=== PATIENT | male | born 1940 | race Two or more races ===

== ENCOUNTER 2020-01-11 06:37 | Day surgery (SDC) | payer MEDICARE, BC ==
[~2020-01-11] VITALS: Ht 170.2 cm; Wt 59.0 kg
[2020-01-11] VITALS (9 sets, daily range): BP systolic 110–161; BP diastolic 56–86
[~2020-01-11 06:37] MED LIST: GLUCOTROL5 MG ORAL; METFORMIN HCL1000 M1 ORAL
--- NOTE | 2020-01-11 06:46 | Short Stay Surgery H&P ---
History of Present Illness History of Present Illness Chief Complaint Abdominal pains, constipation, hemorrhoids HPI Butch Heredia is a 79 year old male who was admitted on for Heartburn, Constipation,abdominal pain Patient History Allergies: Uncoded Allergies: avocado (Allergy, Unknown, 01/10/20) PAST MEDICAL HISTORY: (1) Hypertension (2) Diabetes (3) Diverticulosis Medication History Scheduled Metformin Hcl* (Metformin Hcl*), 1,000 MG ORAL DAILY, (Reported) Discontinued Medications Glipizide* (Glucotrol*), 2 MG ORAL ACBREAKFAST, (Reported) Discontinued Reason: Pt stopped taking med Review of Systems Cardiovascular: Reports: hypertension Respiratory: Reports: no symptoms Skeletal: Reports: no symptoms Gastrointestinal: Reports: gastro esophageal reflux disease Genitourinary: Reports: no symptoms Neurologic: Reports: no symptoms Endocrine: Reports: diabetes - type 2 Hematologic: Reports: no symptoms Physical Exam Skin: normal HENT: normal Heart: normal Lungs: normal Abdomen: normal Extremities: normal Genitourinary: normal Plan Plan of Care upper and lower GI. endoscopies Preop Interventions None. Summary of Findings See the reports. Attestation Are the patient's medical conditions optimized for surgery? Attestation Response: yes Moraima Colvin MD Jan 11, 2020 06:46
--- NOTE | 2020-01-11 06:48 | Pre-Procedure Note/Attestation ---
Pre-Procedure Note/Attestation Complete Prior to Procedure Planned Procedure: left Procedure Narrative: Examination of the upper and the lower GI. tract via endoscopy. Indications for Procedure Pre-Operative Diagnosis: R/O Gastritis, colon polyps/CA Attestation I attest that I discussed the nature of the procedure; its benefits; risks and complications; and alternatives (and the risks and benefits of such alternatives ), prior to the procedure, with the patient (or the patient's legal admissions representative). I attest that, if there was a reasonable possibility of needing a blood transfusion, the patient (or the patient's legal admissions representative) was given the [facility] standardized written summary, pursuant to the [place] Blood Safety Act ([place] Health and Safety Code # 1645, as amended). I attest that I re-evaluated the patient just prior to the surgery and that there has been no change in the patient's H&P, except as documented below: Moraima Colvin MD Jan 11, 2020 06:47
[2020-01-11] MEDS ORDERED: Lidocaine 1% MPF 10mg/ml 5ml ONE (07:00)
[2020-01-11] MEDS ORDERED: LR 1000ml ONE (07:00)
[2020-01-11] MEDS ORDERED: LR 1000ml 1,000 ML IVLG SCH ×2 (07:00→07:05)
--- NOTE | 2020-01-11 07:10 | Anethesia Preoperative Eval ---
Anesthesia Pre-op PMH/ROS General Date of Evaluation: Jan 11, 2020 Time of Evaluation: 07:07 Anesthesiologist: raymon ASA Score: ASA 4 Mallampati Score Class I : Soft palate, uvula, fauces, pillars visible Class II: Soft palate, uvula, fauces visible Class III: Soft palate, base of uvula visible Class IV: Only hard plate visible Mallampati Classification: Class II Surgeon: davi Diagnosis: heartburn, constipation Surgical Procedure: egd/colonoscopy Anesthesia History: none Social History: smoking - former smoker, alcohol use Family History: no anesthesia problems Allergies: Uncoded Allergies: avocado (Allergy, Unknown, 01/10/20) Medications: see eMAR Patient NPO?: Yes Past Medical History Cardiovascular: Reports: HTN Gastrointestinal/Genitourinary: Reports: GERD, other - diverticulosis PSxH Narrative: appendectomy, hemorrhoidectomy Anesthesia Pre-op Phys. Exam Physician Exam Last Vital Signs Date Time Temp Pulse Resp B/P (MAP) Pulse Ox O2 Delivery O2 Flow Rate FiO2 Last Vital Signs Date Time Temp Pulse Resp B/P (MAP) Pulse Ox O2 Delivery O2 Flow Rate FiO2 01/11/20 07:03 Room Air Constitutional: NAD Neurologic: CN 2-12 intact Cardiovascular: RRR Respiratory: CTA Gastrointestinal: S/NT/ND Airway Exam Mallampati Score: Class II MO: limited Neck: flexible TMD: 2fb ROM: limited Dentures: upper, lower Anesthesia Pre-op A/P Labs Microbiology Date/Time Source Procedure Growth Status 01/07/20 09:50 Nasopharynx SARS-CoV-2 RdRp Gene Assay - Final Complete Risk Assessment & Plan Assessment: asa4 Plan: mac Status Change Before Surgery: No Pre-Antibiotics Drug: Jenny Sewell MD Jan 11, 2020 07:10
[2020-01-11] MEDS ORDERED: fentaNYL 100 mcg/2 mL IV PRN (07:15)
[2020-01-11] MEDS ORDERED: Atropine Inj 1mg/10ml Syr IV PRN (07:15)
[2020-01-11] MEDS ORDERED: Midazolam 2mg/2ml Inj IVP PRN (07:15)
[2020-01-11] MEDS ORDERED: DiphenhydrAMINE 50mg/ml Inj IVP PRN (07:15)
--- NOTE | 2020-01-11 07:31 | Discharge Instructions ---
Discharge Instructions Discharge Instructions Follow up with: Make apponitment to fall up in 2 weeks in the office For Congestive Heart Failure Reminder Report to your physician any weight gain of 5 pounds or more in one week. Moraima Colvin MD Jan 11, 2020 07:31
--- NOTE | 2020-01-11 07:32 | Discharge Instructions ---
Discharge Instructions Discharge Instructions Follow up with: see the docotr after 2 weeks For Congestive Heart Failure Reminder Report to your physician any weight gain of 5 pounds or more in one week. Moraima Colvin MD Jan 11, 2020 07:32
--- NOTE | 2020-01-11 08:00 | Endoscopy Procedure Note ---
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 , colonoscopy - Grade IV internal hemorrhoids with mild diverticulosis of the left decending colon. Specimen: yes Pt Tolerated Procedure Well: Yes Estimated Blood Loss: none Anesthesia Anesthesiologist: Dr. Syed Anesthesia: moderate sedation Inserted Devices Implant(s) used?: No Quality Quality of Bowel Preparation: Good Did scope reach the cecum?: Yes Was there any complications?: No GI Core Measures 50 yrs or older w/o bx or poly: Yes 10yrs. F/U recommended: No 18 years or older w/prev. colo: Yes <3yrs. since last colonoscopy: No Med reason:<3 yrs.: System Reason:<3 yrs.: Last colonoscopy >= to 3yrs: Yes Moraima Colvin MD Jan 11, 2020 08:00
--- NOTE | 2020-01-11 08:18 | Immediate Post-Op Evaluation ---
Immediate Post-Op Evalulation Immediate Post-Op Evalulation Procedure: egd/colonoscopy w/bx Date of Evaluation: Jan 11, 2020 Time of Evaluation: 08:17 IV Fluids: 250ml lr Blood Products: none Estimated Blood Loss: negligible Blood Pressure Systolic: 128 Blood Pressure Diastolic: 72 Pulse Rate: 53 Respiratory Rate: 18 O2 Sat by Pulse Oximetry: 100 Temperature (Fahrenheit): 97.2 Pain Score (1-10): 0 Nausea: No Vomiting: No Complications no Patient Status: awake, reacts, patent Hydration Status: adequate Drug: Jenny Sewell MD Jan 11, 2020 08:18
--- NOTE | 2020-01-11 08:20 | 48 Hour Post Anesthesia Eval ---
Post Anesthesia Evaluation Procedure: egd/colonoscopy w/bx Date of Evaluation: Jan 11, 2020 Time of Evaluation: 08:19 Blood Pressure Systolic: 139 0: 56 Pulse Rate: 54 Respiratory Rate: 18 Temperature (Fahrenheit): 97.2 O2 Sat by Pulse Oximetry: 100 Airway: patent Nausea: No Vomiting: No Pain Intensity: 0 Hydration Status: adequate Cardiopulmonary Status: stable Mental Status/LOC: patient returned to baseline Post-Anesthesia Complications: none Follow-up care needed: N/A Jenny Syed MD Jan 11, 2020 08:20
--- NOTE | 2020-01-11 09:30 | Operative Note - Dictated ---
DATE OF OPERATION: 01/11/2020 SURGEON: Moraima Colvin MD. PROCEDURE: Esophagogastroduodenoscopy with biopsy. PREOPERATIVE DIAGNOSIS: Abdominal pain, history of gastroesophageal acid reflux. 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 Biopsy was taken from lower esophagus. 2. Mild gastritis. Biopsy was taken per random from the upper antral area, otherwise normal study. MEDICATION USED: Per Dr. Barahona, anesthesiologist. INSTRUMENT: GIF Olympus upper GI video endoscope. DESCRIPTION OF PROCEDURE: The patient after arriving in the endoscopy unit, was told about risks and benefits of the procedure, he accepted and signed informed consent. At this time, he was put in the left lateral decubitus position. After adequate IV sedation, the scope was gently passed through the cricopharyngeal area and was lodged into the upper esophagus and gradually advanced towards gastroesophageal junction. The upper two parts of the esophagus was completely normal, however, upon reaching towards the lower esophagus, there was patchy wide exudative areas suggestive of possible Emily esophagus that they could not be removed by insufflation of air. At this time, one random biopsy from one of these lesions was obtained. Subsequently, the scope was passed through the gastroesophageal junction which looked normal. No evidence of hiatal hernia or Jorge's mucosa was seen. At this time, the scope was advanced into the stomach. Gastric cavity was distended with insufflation of air. Gradually, the areas of the fundus and the body and the antrum were examined, which basically looked normal and there was minimal amount of bile in the stomach. A retroflexion maneuver was applied in the area of the gastroesophageal junction was examined in a closer fashion, which revealed normal findings with no pathology such as ulcers, tumors, etc. seen. At this point, the scope was gradually advanced towards the mid and lower part of the stomach revealing some mild inflammatory process mostly seen in the antral area consistent with possible underlying mild gastritis/antritis. One random biopsy from the upper antrum was obtained and subsequently scope was passed through the pylorus. First and second portion of duodenum were found to be completely normal. At this time, the scope was pulled out and the procedure was terminated. The patient tolerated the procedure well. Said John Colvin DR: ANN JOB#: [id number] CC:
--- NOTE | 2020-01-11 09:30 | Operative Note - Dictated ---
DATE OF OPERATION: 01/11/2020 PROCEDURE: Total colonoscopy. PREOPERATIVE DIAGNOSES: History of constipation, hemorrhoids, and followup screening colonoscopy. POSTOPERATIVE DIAGNOSES: 1. Grade 4 internal hemorrhoids. 2. Mild diverticulosis of the rectosigmoid area, otherwise completely normal study as examination was done up to the base of the cecum. MEDICATION USED: Per Dr. Barahona, anesthesiologist. INSTRUMENT: GIF Olympus video colonoscope. DESCRIPTION OF PROCEDURE: The patient after arriving endoscopy unit, was told about risks and benefits of the procedure that he accepted and signed informed consent. At this time, he was put in the left lateral decubitus position. After adequate IV sedation, the scope was gently passed through the anal area which revealed evidence of external hemorrhoids consistent with grade 4 hemorrhoids. At this time, upon entering into the rectum, a retroflexion maneuver was applied and again in closer fashion it was revealed that there was mild hemorrhoidal lesions; however, there was no any evidence of irritability and bleeding. The rest of the rectum looked completely normal. At this time, the scope was gradually passed through the rectosigmoid area, which revealed evidence of 1 or 2 diverticular lesions of no great significance. At this time, the scope was gradually advanced toward the left descending colon, splenic flexure, transverse colon, and finally hepatic flexure came into view, with advancement of the scope into the right colon, the scope reached to the base of the cecum. All these areas were also normal. The colon cleanup was also adequate and good. At this point, upon reaching to the base of the cecum and finding no other pathologies such as polyps, tumors, strictures, colitis etc. Within 6 minutes, the scope was gradually pulled out and reexamination did not reveal any other abnormalities. Colon cleanup was also good. Finally procedure was terminated. The patient tolerated the procedure well and left the endoscopy room in a good condition. Said John Colvin DR: Dimitry JOB#: [id number] CC:
== END 2020-01-11 10:15 | disposition home or self-care (01) ==
LOC: GAS 06:37
DX: Z12.11 Encounter for screening for malignant neoplasm of colon (principal); K64.8 Other hemorrhoids; K57.90 Diverticulosis of intestine, part unspecified, without perforation or abscess without bleeding; K29.70 Gastritis, unspecified, without bleeding; E11.9 Type 2 diabetes mellitus without complications; I10 Essential (primary) hypertension; Z79.84 Long term (current) use of oral hypoglycemic drugs; K21.9 Gastro-esophageal reflux disease without esophagitis; Z87.891 Personal history of nicotine dependence; Z90.89 Acquired absence of other organs
CPT/HCPCS: 43239; 82962; 94003; G0121; J2704; J7120; U0002; 94150